=== PATIENT | female | born 1970 | race American Indian/Alaskan Native ===

== ENCOUNTER 2018-07-25 14:07 | Emergency (ER) | payer OTHER ==
[2018-07-25 14:27] VITALS: BP 145/100
--- NOTE | 2018-07-25 14:27 | Emergency Department Report ---
Blank Doc - Documentation Documentation: This is a 47-year-old female that was sent by PCP for high blood pressure. De nies any headache. Stated had a headache but resolved now. Denies any other complaints or symptoms. This initial assessment/diagnostic orders/clinical plan/treatment(s) is/are subject to change based on patient's health status, clinical progression and re- assessment by fellow clinical providers in the ED. Further treatment and workup at subsequent clinical providers discretion. Patient/guardians urged not to elope from the ED as their condition may be serious if not clinically assessed and managed. Initial orders include: 1- Patient sent to [facility] for further evaluation and treatment 2- labs
[2018-07-25 16:47] LABS: Basophils % (Auto) 0.7 % (0.0-1.8); Eosinophils # (Auto) 0.2 K/mm3 (0.0-0.4); Eosinophils % (Auto) 2.8 % (0.0-4.3); Hematocrit 31.7 % (30.3-42.9); Hemoglobin 9.6 gm/dl (10.1-14.3); Lymphocytes # (Auto) 2.4 K/mm3 (1.2-5.4); Lymphocytes % (Auto) 37.3 % (13.4-35.0); Mean Corpuscular HGB Conc 30 % (30-34); Monocytes # (Auto) 0.4 K/mm3 (0.0-0.8); Platelet Count 405 K/mm3 (140-440); Red Blood Count 4.61 M/mm3 (3.65-5.03); Red Cell Distribution Width 19.8 % (13.2-15.2)
[2018-07-25 16:49] LABS: Mean Corpuscular Volume 69 fl (79-97)
[2018-07-25 16:51] LABS: BUN/Creatinine Ratio 15; Blood Urea Nitrogen 12 mg/dL (7-17); Calcium 9.4 mg/dL (8.4-10.2); Hemolysis Index 1
--- NOTE | 2018-07-25 16:51 | Emergency Department Report ---
ED General Adult HPI - General Chief complaint: High BP Stated complaint: SEND BY Time Seen by Provider: 07/25/18 14:26 Source: patient Mode of arrival: Ambulatory Limitations: No Limitations - History of Present Illness Initial comments: Mrs. Chowdhury is a pleasant 47-year-old -Spanish female who comes to the ER today after presenting to her primary care doctor's office and having a high blood pressure. Blood pressure noted on admission. Patient was on lisinopril at one point but stopped it, for reasons that are unclear. Her PCP sent her here for blood pressure evaluation. Patient has no headache, no chest pain, no shortness of breath. Patient is more anxious than anything else given her concerns below. The patient goes on to add that she is recently had her house refurbished due to mold. 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 She states that she had been exposed to these since a forehead approximately 3 years prior to discovering the mold. And she is wanting to know if she has been exposed to her harmed in any way from these mold spores including the Aspergillus. She has been on Glucotrol and is extremely concerned about the effects on her health. I've explained to her that this is nothing that we do in the emergency room. 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 We've also talked about acute Aspergillus pneumonia and symptoms that we would typically see with mold exposure: None of which does she have. - Related Data Previous Rx's Medication Instructions Recorded Last Taken Type Amlodipine Besylate [Norvasc] 5 mg PO DAILY #30 tablet 07/25/18 Unknown Rx hydroCHLOROthiazide [HCTZ] 25 mg PO QDAY PRN #30 tablet 07/25/18 Unknown Rx Allergies Allergy/AdvReac Type Severity Reaction Status Date / Time No Known Allergies Allergy Unverified 07/25/18 14:11 ED Review of Systems ROS: Stated complaint: SEND BY Other details as noted in HPI Comment: All other systems reviewed and negative ED Past Medical Hx - Past Medical History Previous Medical History?: Yes Hx Hypertension: Yes - Surgical History Past Surgical History?: Yes Additional Surgical History: Tubal ligation - Family History Family history: other (mom and dad both have HTN) - Social History Smoking Status: Never Smoker Substance Use Type: None - Medications Home Medications: Home Medications Medication Instructions Recorded Confirmed Last Taken Type Amlodipine Besylate [Norvasc] 5 mg PO DAILY #30 tablet 07/25/18 Unknown Rx hydroCHLOROthiazide [HCTZ] 25 mg PO QDAY PRN #30 tablet 07/25/18 Unknown Rx ED Physical Exam - General Limitations: No Limitations General appearance: alert, in no apparent distress - Head Head exam: Present: atraumatic, normocephalic - Eye Eye exam: Present: normal appearance, PERRL - ENT ENT exam: Present: mucous membranes moist - Neck Neck exam: Present: normal inspection - Respiratory Respiratory exam: Present: normal lung sounds bilaterally - Cardiovascular Cardiovascular Exam: Present: regular rate - GI/Abdominal GI/Abdominal exam: Present: soft, normal bowel sounds - Rectal Rectal exam: Present: deferred - Extremities Exam Extremities exam: Present: normal inspection, full ROM - Back Exam Back exam: Present: normal inspection, full ROM - Neurological Exam Neurological exam: Present: alert, oriented X3, normal gait - Psychiatric Psychiatric exam: Present: normal affect, normal mood - Skin Skin exam: Present: warm, dry, intact ED Course Vital Signs 07/25/18 14:24 Temperature 98.8 F Pulse Rate 105 H Respiratory 20 Rate Blood Pressure 145/100 O2 Sat by Pulse 99 Oximetry ED Medical Decision Making - Lab Data Result diagrams: 07/25/18 15:41 07/25/18 15:41 - Medical Decision Making Vital Signs 07/25/18 14:24 Temperature 98.8 F Pulse Rate 105 H Respiratory 20 Rate Blood Pressure 145/100 O2 Sat by Pulse 99 Oximetry Labs 07/25/18 07/25/18 15:41 15:41 WBC 6.5 RBC 4.61 Hgb 9.6 L Hct 31.7 MCV 69 L MCH 21 L MCHC 30 RDW 19.8 H Plt Count 405 Lymph % (Auto) 37.3 H [place] % (Auto) 6.0 Eos % (Auto) 2.8 Baso % (Auto) 0.7 Lymph # 2.4 Coos # 0.4 Eos # 0.2 Baso # 0.0 Seg Neutrophils % 53.2 Seg Neutrophils # 3.4 Sodium 138 Potassium 4.2 Chloride 99.1 Carbon Dioxide 28 Anion Gap 15 BUN 12 Creatinine 0.8 Estimated GFR > 60 BUN/Creatinine Ratio 15 Glucose 98 Calcium 9.4 She has been given a copy of her labs. We had a lengthy discussion about the use of HCTZ, Norvasc, and lisinopril. Patient will go home with Norvasc as we had discussed it is the best given her age and genetics. We talked about the side effect of peripheral edema which she was well versed in from [place]. I have given her HCTZ to use as needed if she should have any swelling. She is to follow up with her primary care doctor in 2 weeks to make sure that the dose of the Norvasc is appropriate. Patient was given resources for Aspergillus and multiple concerns including listed heavy line technician, [facility], and the [facility]. Critical care attestation.: If time is entered above; I have spent that time in minutes in the direct care of this critically ill patient, excluding procedure time. ED Disposition Clinical Impression: HTN (hypertension), Mold exposure Disposition: DC- TO HOME OR SELFCARE Is pt being admited?: No Does the pt Need Aspirin: No Condition: Stable Instructions: Heart Healthy Diet (ED), DASH Eating Plan (ED), Low Sodium Diet (ED), Hypertensive Crisis (ED), Hypertension (ED) Additional Instructions: RESOURCES FOR IMMUNOLOGY [facility] WEBSITE SEARCH MD FEATURE RESOURCES FOR MOLD INFORMATION [email or web address] [email or web address] [place] DIET MEDS ORDERED TODAY IN ER FOLLOW UP PCP WITHIN 48 HOURS TO ENSURE YOU ARE GETTING BETTER ACTIVITY TOLERATED Prescriptions: hydroCHLOROthiazide [HCTZ] 25 mg PO QDAY PRN #30 tablet PRN Reason: Edema Amlodipine Besylate [Norvasc] 5 mg PO DAILY #30 tablet Referrals: NICOLAS SAENZ MD [Staff Physician] - 3-5 Days DANII LOPEZ JR, MD [Staff Physician] - 3-5 Days STEPHANIE TAVARES MD [Staff Physician] - 3-5 Days Time of Disposition: 17:12
== END 2018-07-25 17:40 | disposition home or self-care (01) ==
LOC: ED 14:07
DX: I10 Essential (primary) hypertension (principal); Z77.120 Contact with and (suspected) exposure to mold (toxic)
CPT/HCPCS: 36415; 80048; 84703; 85025